=== PATIENT | male | born 1940 | race Hispanic/Latino ===

== ENCOUNTER → 2017-08-10 | Outpatient (CLI) | payer MEDICARE, OTHER ==
[~2017-08-10] MED LIST: CEPH500C2 PO; LEVO500T89 PO; OMEP20TA25 PO; SIMV5TAB6 PO
== END | disposition home or self-care (01) ==
LOC: SHCH 12:01
PROVIDERS: ATTEND Internal Medicine Cardiovascular Disease
DX: I51.7 Cardiomegaly (principal)
CPT/HCPCS: 93306

== ENCOUNTER → 2017-08-31 | Outpatient (CLI) | payer OTHER | END | disposition home or self-care (01) | LOC: OIH 13:45 | PROVIDERS: ATTEND Internal Medicine Cardiovascular Disease | DX: Z13.6 Encounter for screening for cardiovascular disorders (principal) | CPT/HCPCS: 75571 ==

== ENCOUNTER → 2017-10-12 | Outpatient (CLI) | payer MEDICARE ==
[~2017-10-12] VITALS: Ht 175.3 cm; Wt 92.5 kg
[~2017-10-12] MED LIST changes: +REGADENOSON 0.4 MG/5 ML PF SYG IVP SCH
== END | disposition home or self-care (01) ==
LOC: SHCH 07:45
PROVIDERS: ATTEND Internal Medicine Cardiovascular Disease
DX: I25.10 Atherosclerotic heart disease of native coronary artery without angina pectoris (principal); I10 Essential (primary) hypertension; E78.5 Hyperlipidemia, unspecified; K21.9 Gastro-esophageal reflux disease without esophagitis
CPT/HCPCS: 78452; 93017; 96374; A9500 ×2; J2785

== ENCOUNTER → 2024-04-16 | Outpatient (CLI) | payer OTHER ==
[~2024-04-16] MED LIST changes: +LEVO-70 PO; -LEVO500T89 PO; +OMEP20TA20 PO; -OMEP20TA25 PO; -REGADENOSON 0.4 MG/5 ML PF SYG IVP SCH; +SIMV5TAB58 PO; -SIMV5TAB6 PO
[2024-04-16 16:21] LABS: BASOPHILS # (AUTO) 0.04 K/uL (0.00-0.20); BASOPHILS % (AUTO) 0.6 % (0.0-5.0); EOSINOPHILS # (AUTO) 0.35 K/uL (0.00-0.70); HEMATOCRIT 45.7 % (42-54); IMMATURE GRANULOCYTE ABSOLUTE 0.04 K/uL (0-1); LYMPHOCYTES # (AUTO) 1.4 K/uL (1.0-4.8); LYMPHOCYTES % (AUTO) 20.7 % (21.0-51.0); MEAN CORPUSCULAR HGB CONC 32.4 g/dL (32.0-36.0); MEAN CORPUSCULAR VOLUME 95.8 fL (79-99); MONOCYTES # (AUTO) 0.8 K/uL (0.1-1.0); MONOCYTES % (AUTO) 11.2 % (3.0-13.0); NEUTROPHILS # (AUTO) 4.3 K/uL (1.8-7.7); NEUTROPHILS % (AUTO) 61.9 % (40.0-77.0); PLATELET COUNT (AUTO) 288 K/uL (130-400); RED BLOOD CELL COUNT(AUTO) 4.77 MIL/uL (4.50-6.20); RED CELL DISTRIBUTION WIDTH 13.3 % (11.0-15.5)
[2024-04-16 16:30] LABS: POTASSIUM 4.8 mmol/L (3.5-5.1)
[2024-04-16 17:03] LABS: B-TYPE NATRIURETIC PEPTIDE 25 pg/mL (0-100)
== END | disposition home or self-care (01) ==
LOC: LAB 11:37
PROVIDERS: ATTEND Internal Medicine Cardiovascular Disease
DX: I10 Essential (primary) hypertension (principal)
CPT/HCPCS: 36415; 80048; 83880; 85025

== ENCOUNTER 2024-04-29 05:47 | Inpatient (IN) | payer OTHER ==
[2024-04-25 08:36] VITALS: BP 141/80; PULSE 59; RESP 18; TEMP 97.2
[2024-04-25 08:40] LABS: BASOPHILS # (AUTO) 0.02 K/uL (0.00-0.20); BASOPHILS % (AUTO) 0.3 % (0.0-5.0); EOSINOPHILS # (AUTO) 0.23 K/uL (0.00-0.70); HEMATOCRIT 47.5 % (42-54); IMMATURE GRANULOCYTE ABSOLUTE 0.03 K/uL (0-1); LYMPHOCYTES # (AUTO) 1.3 K/uL (1.0-4.8); LYMPHOCYTES % (AUTO) 16.4 % (21.0-51.0); MEAN CORPUSCULAR HEMOGLOBIN 30.3 pg (27.0-33.0); MEAN CORPUSCULAR HGB CONC 32.6 g/dL (32.0-36.0); MONOCYTES # (AUTO) 0.8 K/uL (0.1-1.0); MONOCYTES % (AUTO) 10.1 % (3.0-13.0); NEUTROPHILS # (AUTO) 5.3 K/uL (1.8-7.7); NEUTROPHILS % (AUTO) 69.8 % (40.0-77.0); PLATELET COUNT (AUTO) 276 K/uL (130-400); RED BLOOD CELL COUNT(AUTO) 5.11 MIL/uL (4.50-6.20); RED CELL DISTRIBUTION WIDTH 13.1 % (11.0-15.5); WHITE BLOOD COUNT (AUTO) 7.6 K/uL (4.8-10.8)
[2024-04-25 08:46] LABS: ALBUMIN 3.5 g/dL (3.5-5.0); CREATININE 1.1 mg/dL (0.5-1.3); POTASSIUM 4.6 mmol/L (3.5-5.1)
[2024-04-25 08:47] LABS: INR 1.01 (0.85-1.15); PROTHROMBIN TIME 11.3 SEC (9.6-11.6)
[2024-04-25 08:48] LABS: PARTIAL THROMBOPLASTIN TIME 28.5 SEC (26.3-35.5)
[2024-04-25 09:52] LABS: APPEARANCE,URINE CLEAR (CLEAR); BILIRUBIN,URINE NEGATIVE (NEGATIVE); COLOR,URINE YELLOW (YELLOW); GLUCOSE, URINE (UA) NEGATIVE (NEGATIVE); KETONES,URINE NEGATIVE (NEGATIVE); LEUKOCYTE ESTERASE ,URINE NEGATIVE Leu/uL (NEGATIVE); NITRATE,URINE NEGATIVE (NEGATIVE); OCCULT BLOOD,URINE SMALL (NEGATIVE); PH,URINE 5.5 (5.0-8.0); PROTEIN,URINE NEGATIVE (NEGATIVE); UROBILINOGEN,URINE 0.2 mg/dL (0.2-1.0)
[2024-04-25 09:54] LABS: ADD UA MICROSCOPIC YES
[2024-04-25 10:05] LABS: BACTERIA,URINE RARE /HPF (None Seen); MUCUS,URINE RARE LPF (None Seen); SQUAMOUS EPITHELIAL CELL,UR RARE /HPF (0-2); WBC,URINE 0-1 /HPF (0-1)
[~2024-04-29] VITALS: Ht 172.7 cm; Wt 86.6 kg
[2024-04-29] VITALS (32 sets, daily range): BP systolic 109–137; BP diastolic 60–75; PULSE 60–88; RESP 12–20; TEMP 96.7–98.5; O2SAT 97
[~2024-04-29 05:47] MED LIST changes: +ATOR10TA69 PO; -CEPH500C2 PO; -LEVO-70 PO; +LOSA100T59 PO; +METO50TA18 PO; +SERT-438 PO; -SIMV5TAB58 PO; +TAMS-1 PO
[2024-04-29] MEDS: FAMOTIDINE 20MG VIAL IV ONE (06:42)
[2024-04-29] MEDS: acetaMINOPHEN 100 ML ONE (06:42)
[2024-04-29] MEDS: IpraTROPium/alBUTERol SULFATE 3 ML SOLUTION IH ONE (06:53)
[2024-04-29] MEDS ORDERED: rocuRONium bROMide 10MG/1ML 5ML VL ONE ×2 (06:57→07:59)
[2024-04-29] MEDS ORDERED: LIDOCAINE HCL-MPF 2% 10ML AMP IJ ONE (06:57)
[2024-04-29] MEDS ORDERED: proPOFol 10 MG/ML 20ML VIAL IV ONE (06:57)
[2024-04-29] MEDS ORDERED: FENTanyl CITRate PF 50 MCG/1 ML 2ML VIAL ONE (06:58)
[2024-04-29] MEDS ORDERED: ketaMINE 50MG/ML SYRINGE 50 MG/ML DISP.SYRIN ONE (06:59)
[2024-04-29] MEDS ORDERED: ROPivacaine 0.5% 5MG/ML 30ML ONE (06:59)
[2024-04-29] MEDS ORDERED: dexaMETHasone SOD PHOSPHATE 10MG/ML 1ML VIAL ONE (07:33)
[2024-04-29] MEDS ORDERED: ondanSETRON 4MG INJ ONE (07:33)
[2024-04-29] MEDS ORDERED: ePHEDrine SULFate 50 MG/ML AMPULE ONE (07:48)
[2024-04-29] MEDS: ceFAZolin SODIUM 2 GM VIAL ONE (07:55)
[2024-04-29] MEDS: LACTATED RINGERS 1000ML 1,000 ML IV ONE (08:26)
--- NOTE | 2024-04-29 08:38 | EKG ---
[facility] Test Date: 2024-04-29 Test Time: 06:33:43 Pat Name: ALTAF GARCES Department: [facility] Room: 432 Gender: M Corporate Counselor: [id number] : 1940 Requested By: ANY CHINO Order Number: [id number] Reading MD: Ant Gonzales Measurements Intervals Boomer Rate: 60 P: 69 UT: 184 QRS: -50 QRSD: 104 T: 19 QT: 408 QTc: 410 Interpretive Statements Sinus rhythm Left anterior fascicular block Compared to ECG 11/16/2015 11:18:42 Left anterior fascicular block now present Left-axis deviation no longer present Electronically Signed On 04-29-2024 21:24:10 MAORI LIAISON ADVISER by Ant Gonzales Please click the below link to view image of tracing.
[2024-04-29] MEDS ORDERED: PoTASSium chloRIDE 20MEQ/100ML 100 ML IV PRN (09:30)
[2024-04-29] MEDS ORDERED: FERROUS FUMARATE 324 MG TABLET PO PRN (09:30)
[2024-04-29] MEDS ORDERED: PoTASSium chl 10% ELIXIR 20MEQ 20 MEQ/15 ML UDCUP PO PRN (09:30)
[2024-04-29] MEDS ORDERED: ondanSETRON 4MG INJ IVP PRN (09:30)
[2024-04-29] MEDS ORDERED: CALCIUM CARB 500MG PO PRN (09:30)
[2024-04-29] MEDS ORDERED: traMADol HCL 50 MG TABLET PO PRN (09:30)
[2024-04-29] MEDS ORDERED: PoTASSium chloRIDE 20MEQ ER 20 MEQ ERTAB PO PRN (09:30)
[2024-04-29] MEDS ORDERED: GLYCOPYRROLATE 0.2 MG/ML 5 ML VIAL ONE (09:38)
[2024-04-29] MEDS ORDERED: NEOSTIGMINE METHYLSULFATE 1MG/ML IV ONE (09:39)
--- NOTE | 2024-04-29 09:39 | OP ---
Operative Note: DATE OF PROCEDURE: 04/29/24 SURGEON: BLADE FOUNTAIN MD HOME ECONOMICS EXPERT: Viktor Saavedra ANESTHESIA: General and fascia iliaca block ANESTHESIOLOGIST/FLIGHT ENGINEER PERFORMANCE QUALIFIED: Sofy Swift PREOPERATIVE DIAGNOSIS: Left hip osteoarthritis POSTOPERATIVE DIAGNOSIS: Left hip osteoarthritis PROCEDURE: Left total hip arthroplasty ESTIMATED BLOOD LOSS: 250 cc INDICATIONS: 84-year-old male with left hip osteoarthritis failing conservative management most recently with the intra-articular steroid injections. After discussion of the risks, benefits, and alternatives, the patient voluntarily agreed to undergo the aforementioned procedure. IMPLANTS: Xie and Nephew 54 mm R3 shell with 6.5 screws x2, central hole cover, and 0 degree XL PE liner, size nine standard offset anthology stem with the 36 mm +0 Oxinium head DESCRIPTION OF PROCEDURE: Patient was properly identified in the preoperative holding area. Surgical site marking was verified and surgery consent reviewed. The patient was then taken to the operating room and placed in supine position on the OR table. After induction of general anesthesia, preoperative antibiotics were given. The patient was then transitioned in the lateral decubitus position with the left side up. All bony prominences were well-padded. Left lower extremity was then prepped and draped in the usual sterile fashion. Surgical time out was done verifying correct surgery, side, site, and location to be performed. We then began the procedure by making approximately 15 cm long incision centered over the greater trochanter. Here we came sharply through skin down to the fascia. Hemostasis was then achieved using Bovie electrocautery. We then incised fascia in line with the skin incision and finger split the tensor muscle proximally. We then placed our Charnley retractor. At this point we identified the vastus ridge and began elevating the full-thickness soft tissue flap off of the vastus ridge, splitting the vastus lateralis and gluteus muscles as leticia israel. We then proceeded to externally rotate the femur while making this flap. We resected part of the anterior capsule. The femoral head and neck was then delivered into view. We then dislocated the hip and performed a femoral neck osteotomy approximately half fingerbreadth proximal to the lesser trochanter. We then placed our retractors around the superior and anterior portion of the acetabulum and began to remove the labrum circumferentially. We then began reaming the acetabulum where we reamed up to a size 53 ensuring appropriate anteversion and abduction. We then proceeded to trial with the size 54 acetabular component and this appeared to sit well. We opened our size 54 acetabular component and after irrigating out the wound malleted this into place. It appeared to have good press-fit however we elected to place 6.5 mm screws x2. We drilled and filled the screws in standard fashion in the posterior superior portion of the cup. We then placed the manhole cover on the center of the cup. The wound was thoroughly irrigated out further and we placed the acetabular liner and impacted this in place in standard fashion. We then proceeded to reposition our retractors to elevate the proximal femur out of the wound. We then used the box chisel and canal finder to began preparing the femoral side and sequentially broached up to the aforementioned size stem. Once we felt we had good fit, fill, and control of the femur with the stem in place we then used our trial head component and reduce the hip. Upon reduction, we had appropriate soft tissue tensioning, limb length and stable range of motion. We therefore dislocated the hip once more removed our trial components thoroughly irrigated the out the wound and placed our final components in standard fashion. The hip was then reduced with the final components in place. It was found to be stable through range of motion with appropriate soft tissue tensioning and appropriate limb length. At this point we placed a bump under the knee and the foot on the male with a stack of towels to allow for internal rotation. We repaired the abductors back to the greater trochanter using #5 Ethibond. We then repaired the rent in the vastus lateralis and gluteus muscles using #1 Vicryl in a running fashion. We removed our Charnley retractor and began to repair the IT band using #1 Vicryl in interrupted [id number] fashion. At this point we began to close her subcutaneous tissue using 2-0 Vicryl. Running 3-0 Monocryl in subcuticular fashion with Dermabond placed over this for the skin. Island barrier dressing was then applied. Patient was returned to supine position with abduction pillow placed, awakened from anesthesia, and taken to the recovery room in stable condition. BLADE FOUNTAIN MD Apr 29, 2024 09:39
[2024-04-29] MEDS: 0.9%NACL 1000ML 1,000 ML IV SCH (10:12)
[2024-04-29] MEDS: ketOROlac 15MG/ML VIAL (15MG/ML) IV SCH (10:13)
[2024-04-29] MEDS: 0.9%NACL 1000ML 1,000 ML IV ONE (10:27)
[2024-04-29] MEDS: ketOROlac 15MG/ML VIAL (15MG/ML) ONE (10:27)
[2024-04-29] MEDS: FENTanyl CITRate PF 50 MCG/1 ML 2ML VIAL ONE (10:28)
--- NOTE | 2024-04-29 10:52 | HMCIMG ---
HIP BILAT 2VW REASON: S/P HIP SURGERY; COMPARING RT vs LT COMPARISON: None TECHNIQUE: AP pelvis was performed as well as oblique views of each hip. FINDINGS: There is a total hip joint prosthesis in place on the left. Adjacent bone appears unremarkable. There are surgical changes in the soft tissues. Pelvis appears otherwise unremarkable. Proximal right femur appears normal. Hip joint spaces preserved. IMPRESSION: 1. Documentation of total hip joint prosthesis placement on the left without evidence of complication. 2. Otherwise unremarkable exam.
[2024-04-29] MEDS: morPHINE 4 MG SYG ONE (11:18)
[2024-04-29] MEDS: HYDROcodone/APAP 5/325 1 TAB TABLET PO PRN (13:49)
[2024-04-29] MEDS: ceFAZolin SODIUM 2 GM VIAL IVP SCH (13:49)
[2024-04-29] MEDS: CYCLOBENZAPRINE HCL 10 MG TABLET PO PRN (13:49)
[2024-04-29] MEDS: GABApentin 100 MG CAPSULE PO SCH (13:49)
--- NOTE | 2024-04-29 15:23 | HMCIMG ---
HIP UNILAT 4VW LEFT REASON: LT total hip arthroplasty COMPARISON: None TECHNIQUE: 7 surgical spot views are obtained documenting left total hip joint prosthesis. Prostate time was 0.24 minutes. Impression: 1. Documentation of left hip total joint prosthesis.
--- NOTE | 2024-04-29 16:15 | NUR ---
ORTHO COORDINATOR: PATIENT SLEEPING. LEFT UNDISTURBED. B SCD'S SLEEVES IN PLACE IN FUNCTIONING. INCENTIVE SPIROMETER ON BEDSIDE TRAY.
[2024-04-29] MEDS: ASPIRIN 325MG EC TAB PO SCH (21:26)
[2024-04-29] MEDS: tamSULOsin HCL 0.4 MG CAP.ER.24H PO SCH (21:26)
[2024-04-29] MEDS: doCUSate SODIUM 100 MG CAP PO SCH (21:26)
[2024-04-29] MEDS: SERTraline HCL 50 MG TABLET PO SCH (21:30)
[2024-04-30] VITALS (9 sets, daily range): BP systolic 105–145; BP diastolic 55–74; PULSE 67–83; RESP 17–22; TEMP 97.5–98.8; O2SAT 95–98
[2024-04-30 05:10] LABS: HEMATOCRIT 38.8 % (42-54); MEAN CORPUSCULAR HEMOGLOBIN 30.7 pg (27.0-33.0); RED BLOOD CELL COUNT(AUTO) 4.17 MIL/uL (4.50-6.20); RED CELL DISTRIBUTION WIDTH 13.1 % (11.0-15.5); WHITE BLOOD COUNT (AUTO) 11.4 K/uL (4.8-10.8)
[2024-04-30] MEDS: polyETHYLene GLYCol 3350 17 GM POWD.PACK PO SCH (07:48)
[2024-04-30] MEDS: PANTOPrazole 40 MG TAB DR PO SCH (07:48)
[2024-04-30] MEDS: metoPROLOL tartRATE 25 MG TAB PO SCH (09:21)
[2024-04-30] MEDS: LoSARTan 50 MG TABLET PO SCH (09:21)
--- NOTE | 2024-04-30 11:00 | NUR ---
ORTHO COORDINATOR: TEACHING REGARDING DVT AND PNEUMONIA PREVENTION, PAIN MANAGEMENT AND PAIN EXPECTATIONS. PATIENT UP TO CHAIR, FAMILY MEMBER AT BEDSIDE. PATIENT REPORTS PERFORMING INCENTIVE SPIROMETRY EVERY TWO HOURS, ENCOURAGED TO PERFORM DURING COMMERCIALS. SCD MACHINE AT BEDSIDE. PATIENT RETURN DEMONSTRATED PROPER FOOT FLEXION AND EXTENSION. PAIN MANAGED. ICE PACK TO L HIP. PATIENT WILL BE DISCHARGED TO REHAB. CASE MANAGEMENT ARRIVED TO ROOM. ORTHO COORDINATOR EXITED ROOM.
[2024-04-30] MEDS: ketOROlac 15MG/ML VIAL (15MG/ML) IV PRN (14:19)
--- NOTE | 2024-04-30 15:05 | NUR ---
[facility] CM MET WITH PT AND BROTHER THIS MORNING ASSESSMENT DONE. PATIENT IS INDEPENDENT PRIOR TO ADMISSION, LIVE AT HOME ALONE, BROTHER LIVES CLOSE BY. PATIENT HAS A WALKER, RAISED TOILET, NEBULIZER MACHINE, [facility]. DENIES ANY OTHER EQUIPMENT/SERVICES. FEELS SAFE TO GO BACK HOME, STILL DRIVE, BROTHER ABLE TO ASSIST WITH TRANSPORTATION AND NEEDS NECESSARY. DISCUSSED MD RECOMMENDATIONS HOME W/HH, PT PREFERRED TO GO TO SHORT TERM REHAB AT SNF HE LIVES ALONE, INFORMED PT HE DOES NOT HAVE SNF SERVICES CONNECTION, BUT CM CAN TRY IRU HE HAS REHAB COVERAGE FOR IRU, PT VERBALIZED HE ALSO HAS [facility] INSURANCE SECONDARY, WOULD LIKE TO USE IT INSTEAD. CONSENT SIGNED [facility] FOR [facility]. [facility] ONCE APPROVED. CM SENT ORDER, CLINICALS, PT, PASRR TO [facility] AND [facility] VIA SECURE EMAIL. CM SPOKE TO [facility] THIS MORNING, CAME TO EVALUATE PT, PT PENDING APPROVAL AT THIS TIME. PRIMARY NURSE SERGIO GEIGER. DR FOUNTAIN UPDATED. GWEN TO CONTINUE TO OFLLOW UP. Addendum: 04/30/24 at 1509 by DEANDRA WALTERS LVN Amended: Links added.
--- NOTE | 2024-04-30 17:14 | PN ---
POD 1 Reports pain tolerable. Walked with PT yesterday. States he is voiding on his own but not passing any gas yet. Aniya PO. Denies CP/SOB. VSS, AF A&Ox3 NAD sitting in chair at bedside LLE -dressing c/d/i -calf mild edema/soft/NT/ Negation Leayne's -intact ankle DF PT walked 60 ft this afternoon DCP is for avel A/P: 84 yo POD 1 s/p L MARGARET and asymptomatic acute blood loss anemia - cont to mobilize with PT - cont my standard discharge planning - monitor for symptoms of anemia Vitals/Labs Vital Signs Date Time Temp Pulse Resp B/P (MAP) Pulse Ox O2 Delivery O2 Flow Rate FiO2 04/30/24 16:28 98.8 67 19 145/74 97 04/30/24 08:00 Nasal Cannula* 2 28 Laboratory Tests 04/30/24 04:41 Medications Current Medications Cefazolin Sodium 2 gm STK-MED ONCE .ROUTE Last administered on 04/29/24at 07:55; Start 04/29/24 at 06:31; Stop 04/29/24 at 06:31; Status DC Lactated Ringer's 1,000 ml @ As Directed STK-MED ONCE IV Last administered on 04/29/24at 08:26; Start 04/29/24 at 06:31; Stop 04/29/24 at 06:31; Status DC Albuterol 1 UDVIAL ONCE ONCE IH Last administered on 04/29/24at 06:53; Start 04/29/24 at 06:40; Stop 04/29/24 at 06:41; Status DC Acetaminophen 100 ml @ As Directed STK-MED ONCE .ROUTE; Start 04/29/24 at 06:42; Stop 04/29/24 at 06:47; Status DC Famotidine 20 mg STK-MED ONCE IV; Start 04/29/24 at 06:42; Stop 04/29/24 at 06:47; Status DC Lidocaine HCl 1 ml STK-MED ONCE IJ; Start 04/29/24 at 06:57; Stop 04/29/24 at 06:57; Status DC Propofol 200 mg STK-MED ONCE IV; Start 04/29/24 at 06:57; Stop 04/29/24 at 06:57; Status DC Rocuronium [place] 50 mg STK-MED ONCE .ROUTE; Start 04/29/24 at 06:57; Stop 04/29/24 at 06:57; Status DC Fentanyl Citrate 100 mcg STK-MED ONCE .ROUTE; Start 04/29/24 at 06:58; Stop 04/29/24 at 06:58; Status DC Ropivacaine 150 mg STK-MED ONCE .ROUTE; Start 04/29/24 at 06:59; Stop 04/29/24 at 07:00; Status DC Ketamine HCl 50 mg STK-MED ONCE .ROUTE; Start 04/29/24 at 06:59; Stop 04/29/24 at 07:00; Status DC Ondansetron HCl 4 mg STK-MED ONCE .ROUTE; Start 04/29/24 at 07:33; Stop 04/29/24 at 07:33; Status DC Dexamethasone Sodium Phosphate 10 mg STK-MED ONCE .ROUTE; Start 04/29/24 at 07:33; Stop 04/29/24 at 07:33; Status DC Ephedrine Sulfate 50 mg STK-MED ONCE .ROUTE; Start 04/29/24 at 07:48; Stop 04/29/24 at 07:49; Status DC Rocuronium [place] 50 mg STK-MED ONCE .ROUTE; Start 04/29/24 at 07:59; Stop 04/29/24 at 08:00; Status DC Sodium Chloride 1,000 ml @ 100 mls/hr Q10H IV Last administered on 04/30/24at 05:22; Start 04/29/24 at 09:30; Stop 04/30/24 at 09:29; Status DC Polyethylene Glycol 17 gm DAILY PO Last administered on 04/30/24at 07:48; Start 04/30/24 at 09:00; Stop 05/30/24 at 08:59 Bisacodyl 10 mg DAILY PRN RC; Start 05/02/24 at 09:30; Stop 06/01/24 at 09:29 Ketorolac Tromethamine 15 mg Q6H PRN IV Last administered on 04/30/24at 14:19; Start 04/30/24 at 09:30; Stop 05/04/24 at 09:29 Ferrous Fumarate 324 mg DAILY PRN PO; Start 04/29/24 at 09:30; Stop 05/29/24 at 09:29 Calcium Carbonate 500 mg Q12H PRN PO; Start 04/29/24 at 09:30; Stop 05/29/24 at 09:29 Ondansetron HCl 4 mg Q6H PRN IVP; Start 04/29/24 at 09:30; Stop 05/29/24 at 09:29 Cefazolin Sodium 2 gm Q8H IVP Last administered on 04/29/24at 22:40; Start 04/29/24 at 14:30; Stop 04/29/24 at 22:31; Status DC Gabapentin 100 mg TID PO Last administered on 04/30/24at 14:19; Start 04/29/24 at 14:00; Stop 05/29/24 at 13:59 Cyclobenzaprine HCl 5 mg Q8H PRN PO Last administered on 04/29/24at 13:49; Start 04/29/24 at 09:30; Stop 05/29/24 at 09:29 Docusate Sodium 100 mg BID PO Last administered on 04/30/24at 07:48; Start 04/29/24 at 21:00; Stop 05/29/24 at 20:59 Ketorolac Tromethamine 15 mg Q8H IV Last administered on 04/30/24at 01:21; Start 04/29/24 at 09:30; Stop 04/30/24 at 01:31; Status DC Aspirin 325 mg BID PO Last administered on 04/30/24at 07:48; Start 04/29/24 at 21:00; Stop 05/29/24 at 20:59 Potassium Chloride 100 ml @ 100 mls/hr AD PRN IV; Start 04/29/24 at 09:30; Stop 05/29/24 at 09:29 Potassium Chloride 20 meq AD PRN PO; Start 04/29/24 at 09:30; Stop 05/29/24 at 09:29 Potassium Chloride 20 meq AD PRN PO; Start 04/29/24 at 09:30; Stop 05/29/24 at 09:29 Tramadol HCl 50 mg Q6H PRN PO; Start 04/29/24 at 09:30; Stop 05/04/24 at 09:29 Acetaminophen/ Hydrocodone Bitart Q4H PRN PO Last administered on 04/30/24at 07:48; Start 04/29/24 at 09:30; Stop 05/04/24 at 09:29 Atorvastatin Calcium 10 mg HS PO; Start 04/30/24 at 21:00; Stop 05/30/24 at 20:59 Losartan Potassium 50 mg AM PO Last administered on 04/30/24at 09:21; Start 04/30/24 at 09:00; Stop 05/30/24 at 08:59 Metoprolol Tartrate 25 mg AM PO Last administered on 04/30/24at 09:21; Start 04/30/24 at 09:00; Stop 05/30/24 at 08:59 Tamsulosin HCl 0.4 mg HS PO Last administered on 04/29/24at 21:26; Start 04/29/24 at 21:00; Stop 05/29/24 at 20:59 Pantoprazole Sodium 40 mg DAILY PO Last administered on 04/30/24at 07:48; Start 04/30/24 at 09:00; Stop 05/30/24 at 08:59 Sertraline HCl 25 mg HS PO Last administered on 04/29/24at 21:30; Start 04/29/24 at 21:00; Stop 05/29/24 at 20:59 Glycopyrrolate 1 mg STK-MED ONCE .ROUTE; Start 04/29/24 at 09:38; Stop 04/29/24 at 09:39; Status DC Neostigmine Methylsulfate 10 mg STK-MED ONCE IV; Start 04/29/24 at 09:39; Stop 04/29/24 at 09:39; Status DC Ketorolac Tromethamine 15 mg STK-MED ONCE .ROUTE; Start 04/29/24 at 10:13; Stop 04/29/24 at 10:13; Status DC Sodium Chloride 1,000 ml @ As Directed STK-MED ONCE IV; Start 04/29/24 at 10:13; Stop 04/29/24 at 10:13; Status DC Fentanyl Citrate 100 mcg STK-MED ONCE .ROUTE Last administered on 04/29/24at 10:28; Start 04/29/24 at 10:17; Stop 04/29/24 at 10:18; Status DC Morphine Sulfate 4 mg STK-MED ONCE .ROUTE Last administered on 04/29/24at 11:18; Start 04/29/24 at 11:07; Stop 04/29/24 at 11:07; Status DC BLADE FOUNTAIN MD Apr 30, 2024 17:14
[2024-04-30] MEDS: atorVAStatin 10 MG TABLET PO SCH (20:23)
[2024-05-01] VITALS (7 sets, daily range): BP systolic 97–145; BP diastolic 54–83; PULSE 44–86; RESP 16–19; TEMP 97.4–100; O2SAT 94–96
--- NOTE | 2024-05-01 12:39 | PN ---
POD 2 Reports pain tolerable but noticed worse pain overnight without applying ice packs. Reports passing very little gas. Aniya PO. Denies CP/SOB. bradycardic this morning, Tmax 100.0 A&Ox3 NAD sitting in chair at bedside LLE -dressing c/d/i -calf mild edema/soft/NT/ Negation Elayne's -intact ankle DF PT walked 60 ft yesterday DCP is for avel A/P: 84 yo POD 2 s/p L MARGARET and asymptomatic acute blood loss anemia - cont to mobilize with PT - discussed trying to get a shower this afternoon - encourage more IS use - cont my standard discharge planning - monitor for symptoms of anemia Vitals/Labs Vital Signs Date Time Temp Pulse Resp B/P (MAP) Pulse Ox O2 Delivery O2 Flow Rate FiO2 05/01/24 12:00 97.5 52 18 104/68 96 Room Air 05/01/24 08:00 2 28 Medications Current Medications Cefazolin Sodium 2 gm STK-MED ONCE .ROUTE Last administered on 04/29/24at 07:55; Start 04/29/24 at 06:31; Stop 04/29/24 at 06:31; Status DC Lactated Ringer's 1,000 ml @ As Directed STK-MED ONCE IV Last administered on 04/29/24at 08:26; Start 04/29/24 at 06:31; Stop 04/29/24 at 06:31; Status DC Albuterol 1 UDVIAL ONCE ONCE IH Last administered on 04/29/24at 06:53; Start 04/29/24 at 06:40; Stop 04/29/24 at 06:41; Status DC Acetaminophen 100 ml @ As Directed STK-MED ONCE .ROUTE; Start 04/29/24 at 06:42; Stop 04/29/24 at 06:47; Status DC Famotidine 20 mg STK-MED ONCE IV; Start 04/29/24 at 06:42; Stop 04/29/24 at 06:47; Status DC Lidocaine HCl 1 ml STK-MED ONCE IJ; Start 04/29/24 at 06:57; Stop 04/29/24 at 06:57; Status DC Propofol 200 mg STK-MED ONCE IV; Start 04/29/24 at 06:57; Stop 04/29/24 at 06:57; Status DC Rocuronium [place] 50 mg STK-MED ONCE .ROUTE; Start 04/29/24 at 06:57; Stop at 06:57; Status DC Fentanyl Citrate 100 mcg STK-MED ONCE .ROUTE; Start 04/29/24 at 06:58; Stop 04/29/24 at 06:58; Status DC Ropivacaine 150 mg STK-MED ONCE .ROUTE; Start 04/29/24 at 06:59; Stop 04/29/24 at 07:00; Status DC Ketamine HCl 50 mg STK-MED ONCE .ROUTE; Start 04/29/24 at 06:59; Stop 04/29/24 at 07:00; Status DC Ondansetron HCl 4 mg STK-MED ONCE .ROUTE; Start 04/29/24 at 07:33; Stop 04/29/24 at 07:33; Status DC Dexamethasone Sodium Phosphate 10 mg STK-MED ONCE .ROUTE; Start 04/29/24 at 07:33; Stop 04/29/24 at 07:33; Status DC Ephedrine Sulfate 50 mg STK-MED ONCE .ROUTE; Start 04/29/24 at 07:48; Stop 04/29/24 at 07:49; Status DC Rocuronium [place] 50 mg STK-MED ONCE .ROUTE; Start 04/29/24 at 07:59; Stop 04/29/24 at 08:00; Status DC Sodium Chloride 1,000 ml @ 100 mls/hr Q10H IV Last administered on 04/30/24at 05:22; Start 04/29/24 at 09:30; Stop 04/30/24 at 09:29; Status DC Polyethylene Glycol 17 gm DAILY PO Last administered on 05/01/24at 09:00; Start 04/30/24 at 09:00; Stop 05/30/24 at 08:59 Bisacodyl 10 mg DAILY PRN RC; Start 05/02/24 at 09:30; Stop 06/01/24 at 09:29 Ketorolac Tromethamine 15 mg Q6H PRN IV Last administered on 04/30/24at 14:19; Start 04/30/24 at 09:30; Stop 05/04/24 at 09:29 Ferrous Fumarate 324 mg DAILY PRN PO; Start 04/29/24 at 09:30; Stop 05/29/24 at 09:29 Calcium Carbonate 500 mg Q12H PRN PO; Start 04/29/24 at 09:30; Stop 05/29/24 at 09:29 Ondansetron HCl 4 mg Q6H PRN IVP; Start 04/29/24 at 09:30; Stop 05/29/24 at 09:29 Cefazolin Sodium 2 gm Q8H IVP Last administered on 04/29/24at 22:40; Start 04/29/24 at 14:30; Stop 04/29/24 at 22:31; Status DC Gabapentin 100 mg TID PO Last administered on 05/01/24at 09:00; Start 04/29/24 at 14:00; Stop 05/29/24 at 13:59 Cyclobenzaprine HCl 5 mg Q8H PRN PO Last administered on 04/29/24at 13:49; Start 04/29/24 at 09:30; Stop 05/29/24 at 09:29 Docusate Sodium 100 mg BID PO Last administered on 05/01/24at 09:00; Start 04/29/24 at 21:00; Stop 05/29/24 at 20:59 Ketorolac Tromethamine 15 mg Q8H IV Last administered on 04/30/24at 01:21; Start 04/29/24 at 09:30; Stop 04/30/24 at 01:31; Status DC Aspirin 325 mg BID PO Last administered on 05/01/24at 09:01; Start 04/29/24 at 21:00; Stop 05/29/24 at 20:59 Potassium Chloride 100 ml @ 100 mls/hr AD PRN IV; Start 04/29/24 at 09:30; Stop 05/29/24 at 09:29 Potassium Chloride 20 meq AD PRN PO; Start 04/29/24 at 09:30; Stop 05/29/24 at 09:29 Potassium Chloride 20 meq AD PRN PO; Start 04/29/24 at 09:30; Stop 05/29/24 at 09:29 Tramadol HCl 50 mg Q6H PRN PO; Start 04/29/24 at 09:30; Stop 05/04/24 at 09:29 Acetaminophen/ Hydrocodone Bitart Q4H PRN PO Last administered on 05/01/24at 09:00; Start 04/29/24 at 09:30; Stop 05/04/24 at 09:29 Atorvastatin Calcium 10 mg HS PO Last administered on 04/30/24at 20:23; Start 04/30/24 at 21:00; Stop 05/30/24 at 20:59 Losartan Potassium 50 mg AM PO Last administered on 04/30/24at 09:21; Start 04/30/24 at 09:00; Stop 05/30/24 at 08:59 Metoprolol Tartrate 25 mg AM PO Last administered on 04/30/24at 09:21; Start 04/30/24 at 09:00; Stop 05/30/24 at 08:59 Tamsulosin HCl 0.4 mg HS PO Last administered on 04/30/24at 20:23; Start 04/29/24 at 21:00; Stop 05/29/24 at 20:59 Pantoprazole Sodium 40 mg DAILY PO Last administered on 05/01/24at 09:00; Start 04/30/24 at 09:00; Stop 05/30/24 at 08:59 Sertraline HCl 25 mg HS PO Last administered on 04/30/24at 20:24; Start 04/29/24 at 21:00; Stop 05/29/24 at 20:59 Glycopyrrolate 1 mg STK-MED ONCE .ROUTE; Start 04/29/24 at 09:38; Stop 04/29/24 at 09:39; Status DC Neostigmine Methylsulfate 10 mg STK-MED ONCE IV; Start 04/29/24 at 09:39; Stop 04/29/24 at 09:39; Status DC Ketorolac Tromethamine 15 mg STK-MED ONCE .ROUTE; Start 04/29/24 at 10:13; Stop 04/29/24 at 10:13; Status DC Sodium Chloride 1,000 ml @ As Directed STK-MED ONCE IV; Start 04/29/24 at 10:13; Stop 04/29/24 at 10:13; Status DC Fentanyl Citrate 100 mcg STK-MED ONCE .ROUTE Last administered on 04/29/24at 10:28; Start 04/29/24 at 10:17; Stop 04/29/24 at 10:18; Status DC Morphine Sulfate 4 mg STK-MED ONCE .ROUTE Last administered on 04/29/24at 11:18; Start 04/29/24 at 11:07; Stop 04/29/24 at 11:07; Status DC BLADE FOUNTAIN MD May 01, 2024 12:39
--- NOTE | 2024-05-01 15:47 | NUR ---
cm note call made to Leslie with [facility] and states pt is still pending approval.
[2024-05-02] VITALS (7 sets, daily range): BP systolic 88–125; BP diastolic 53–75; PULSE 77–87; RESP 16–19; TEMP 79–99.3; O2SAT 94
[2024-05-02] MEDS: LACTULOSE 20 GM/30 ML UDCUP PO ONE (08:55)
[2024-05-02] MEDS ORDERED: BisaCODYL 10 MG SUPP.RECT RC PRN (09:30)
--- NOTE | 2024-05-02 12:15 | NUR ---
ORTHO COORDINATOR: REINFORCED TEACHING. PATIENT IN [place], FAMILY AT BEDSIDE. PATIENT REPORTS BECOMING DIZZY WHEN TRANSFERRING FROM CHAIR TO BED. HYPOTENSIVE. ENCOURAGED PATIENT TO UTILIZE INCENTIVE SPIROMETER EVERY HOUR, 10 BREATHS PER HOUR. PATIENT VERBALIZED UNDERSTANDING.
--- NOTE | 2024-05-02 12:34 | NUR ---
DC PLAN UPDATES SENT TO REP PENDING INSURANCE AUTH. Addendum: 05/02/24 at 1235 by MIGUEL ANGEL ANDINO RN CM Amended: Links added.
--- NOTE | 2024-05-02 16:18 | NUR ---
DC PLAN Not approved yet. Delay caused because he has no services connection could [place] use [place] benefits. Then he changed insurance as of today. [employer] working with patient and family to get new insurance cards and to submit to new insurance. Addendum: 05/03/24 at 0754 by MIGUEL ANGEL ANDINO RN CM Amended: Links added.
[2024-05-03] VITALS: BP 122/63; PULSE 80; RESP 19; TEMP 98
[2024-05-03 08:00] VITALS: BP 113/68; PULSE 58; RESP 16; TEMP 98.3; O2SAT 97
--- NOTE | 2024-05-03 08:34 | PN ---
POD Reports pain tolerable. Able to shower yesterday. Reports passing more gas after lactulose. Aniya PO. Denies CP/SOB. hypotension problems yesterday A&Ox3 NAD sitting in chair at bedside LLE -calf mild edema/soft/NT/ Negation Elayne's -intact ankle DF PT walked 65 ft yesterday DCP is for avel pending insurance A/P: 84 yo POD 4 s/p L MARGARET and asymptomatic acute blood loss anemia - cont to mobilize with PT - stopped gabapentin d/t hypotension - encourage more IS use - ok to discharge once insurance auth Vitals/Labs Vital Signs Date Time Temp Pulse Resp B/P (MAP) Pulse Ox O2 Delivery O2 Flow Rate FiO2 05/03/24 00:00 98.1 80 19 122/63 95 Room Air 05/02/24 20:00 0 21 Medications Current Medications Cefazolin Sodium 2 gm STK-MED ONCE .ROUTE Last administered on 04/29/24at 07:55; Start 04/29/24 at 06:31; Stop 04/29/24 at 06:31; Status DC Lactated Ringer's 1,000 ml @ As Directed STK-MED ONCE IV Last administered on 04/29/24at 08:26; Start 04/29/24 at 06:31; Stop 04/29/24 at 06:31; Status DC Albuterol 1 UDVIAL ONCE ONCE IH Last administered on 04/29/24at 06:53; Start 04/29/24 at 06:40; Stop 04/29/24 at 06:41; Status DC Acetaminophen 100 ml @ As Directed STK-MED ONCE .ROUTE; Start 04/29/24 at 06:42; Stop 04/29/24 at 06:47; Status DC Famotidine 20 mg STK-MED ONCE IV; Start 04/29/24 at 06:42; Stop 04/29/24 at 06:47; Status DC Lidocaine HCl 1 ml STK-MED ONCE IJ; Start 04/29/24 at 06:57; Stop 04/29/24 at 06:57; Status DC Propofol 200 mg STK-MED ONCE IV; Start 04/29/24 at 06:57; Stop 04/29/24 at 06:57; Status DC Rocuronium [place] 50 mg STK-MED ONCE .ROUTE; Start 04/29/24 at 06:57; Stop 04/29/24 at 06:57; Status DC Fentanyl Citrate 100 mcg STK-MED ONCE .ROUTE; Start 04/29/24 at 06:58; Stop 04/29/24 at 06:58; Status DC Ropivacaine 150 mg STK-MED ONCE .ROUTE; Start 04/29/24 at 06:59; Stop 04/29/24 at 07:00; Status DC Ketamine HCl 50 mg STK-MED ONCE .ROUTE; Start 04/29/24 at 06:59; Stop 04/29/24 at 07:00; Status DC Ondansetron HCl 4 mg STK-MED ONCE .ROUTE; Start 04/29/24 at 07:33; Stop 04/29/24 at 07:33; Status DC Dexamethasone Sodium Phosphate 10 mg STK-MED ONCE .ROUTE; Start 04/29/24 at 07:33; Stop 04/29/24 at 07:33; Status DC Ephedrine Sulfate 50 mg STK-MED ONCE .ROUTE; Start 04/29/24 at 07:48; Stop 04/29/24 at 07:49; Status DC Rocuronium [place] 50 mg STK-MED ONCE .ROUTE; Start 04/29/24 at 07:59; Stop 04/29/24 at 08:00; Status DC Sodium Chloride 1,000 ml @ 100 mls/hr Q10H IV Last administered on 04/30/24at 05:22; Start 04/29/24 at 09:30; Stop 04/30/24 at 09:29; Status DC Polyethylene Glycol 17 gm DAILY PO Last administered on 05/02/24at 08:55; Start 04/30/24 at 09:00; Stop 05/30/24 at 08:59 Bisacodyl 10 mg DAILY PRN RC; Start 05/02/24 at 09:30; Stop 06/01/24 at 09:29 Ketorolac Tromethamine 15 mg Q6H PRN IV Last administered on 04/30/24at 14:19; Start 04/30/24 at 09:30; Stop 05/04/24 at 09:29 Ferrous Fumarate 324 mg DAILY PRN PO; Start 04/29/24 at 09:30; Stop 05/29/24 at 09:29 Calcium Carbonate 500 mg Q12H PRN PO; Start 04/29/24 at 09:30; Stop 05/29/24 at 09:29 Ondansetron HCl 4 mg Q6H PRN IVP; Start 04/29/24 at 09:30; Stop 05/29/24 at 09:29 Cefazolin Sodium 2 gm Q8H IVP Last administered on 04/29/24at 22:40; Start 04/29/24 at 14:30; Stop 04/29/24 at 22:31; Status DC Gabapentin 100 mg TID PO Last administered on 05/02/24at 19:51; Start 04/29/24 at 14:00; Stop 05/03/24 at 07:06; Status DC Cyclobenzaprine HCl 5 mg Q8H PRN PO Last administered on 04/29/24at 13:49; Start 04/29/24 at 09:30; Stop 05/29/24 at 09:29 Docusate Sodium 100 mg BID PO Last administered on 05/02/24at 19:50; Start 04/29/24 at 21:00; Stop 05/29/24 at 20:59 Ketorolac Tromethamine 15 mg Q8H IV Last administered on 04/30/24at 01:21; Start 04/29/24 at 09:30; Stop 04/30/24 at 01:31; Status DC Aspirin 325 mg BID PO Last administered on 05/02/24at 19:49; Start 04/29/24 at 21:00; Stop 05/29/24 at 20:59 Potassium Chloride 100 ml @ 100 mls/hr AD PRN IV; Start 04/29/24 at 09:30; Stop 05/29/24 at 09:29 Potassium Chloride 20 meq AD PRN PO; Start 04/29/24 at 09:30; Stop 05/29/24 at 09:29 Potassium Chloride 20 meq AD PRN PO; Start 04/29/24 at 09:30; Stop 05/29/24 at 09:29 Tramadol HCl 50 mg Q6H PRN PO; Start 04/29/24 at 09:30; Stop 05/04/24 at 09:29 Acetaminophen/ Hydrocodone Bitart Q4H PRN PO Last administered on 05/03/24at 04:57; Start 04/29/24 at 09:30; Stop 05/04/24 at 09:29 Atorvastatin Calcium 10 mg HS PO Last administered on 05/02/24 19:50; Start 04/30/24 at 21:00; Stop 05/30/24 at 20:59 Losartan Potassium 50 mg AM PO Last administered on 05/02/24 08:55; Start 04/30/24 at 09:00; Stop 05/30/24 at 08:59 Metoprolol Tartrate 25 mg AM PO Last administered on 05/02/24 08:55; Start 04/30/24 at 09:00; Stop 05/30/24 at 08:59 Tamsulosin HCl 0.4 mg HS PO Last administered on 05/02/24 19:49; Start 04/29/24 at 21:00; Stop 05/29/24 at 20:59 Pantoprazole Sodium 40 mg DAILY PO Last administered on 05/02/24 08:55; Start 04/30/24 at 09:00; Stop 05/30/24 at 08:59 Sertraline HCl 25 mg HS PO Last administered on 05/02/24 19:50; Start 04/29/24 at 21:00; Stop 05/29/24 at 20:59 Glycopyrrolate 1 mg STK-MED ONCE .ROUTE; Start 04/29/24 at 09:38; Stop 04/29/24 at 09:39; Status DC Neostigmine Methylsulfate 10 mg STK-MED ONCE IV; Start 04/29/24 at 09:39; Stop 04/29/24 at 09:39; Status DC Ketorolac Tromethamine 15 mg STK-MED ONCE .ROUTE; Start 04/29/24 at 10:13; Stop 04/29/24 at 10:13; Status DC Sodium Chloride 1,000 ml @ As Directed STK-MED ONCE IV; Start 04/29/24 at 10:13; Stop 04/29/24 at 10:13; Status DC Fentanyl Citrate 100 mcg STK-MED ONCE .ROUTE Last administered on 04/29/24at 10:28; Start 04/29/24 at 10:17; Stop 04/29/24 at 10:18; Status DC Morphine Sulfate 4 mg STK-MED ONCE .ROUTE Last administered on 04/29/24at 11:18; Start 04/29/24 at 11:07; Stop 04/29/24 at 11:07; Status DC Lactulose 20 gm ONCE ONCE PO Last administered on 05/02/24at 08:55; Start 05/02/24 at 08:30; Stop 05/02/24 at 08:31; Status DC BLADE FOUNTAIN MD May 03, 2024 08:34
--- NOTE | 2024-05-03 11:00 | NUR ---
ORTHO COORDINATOR: REINFORCED TEACHING. PATIENT UP TO CHAIR IN STREET [employer]. REPORTS SHOWERING LAST NIGHT. PATIENT PAIN 10/08. STATES WAS GIVEN PAIN MEDS A LITTLE WHILE AGO. ENCOURAGED PATIENT TO CONTINUE INCENTIVE SPIROMETRY, FOOT FLEXION AND EXTENSION EXERCISES AND PAIN MANAGEMENT PRIOR TO PHYSICAL ACTIVITY AND PERIODS OF HIGH ACTIVITY WHILE IN REHAB. PATIENT VERBALIZED UNDERSTANDING TO ALL INSTRUCTIONS. NOT ADDITIONAL QUESTIONS/CONCERNS AT THIS TIME.
--- NOTE | 2024-05-03 11:06 | DS ---
Discharge Summary Assessment/Plan: ASSESSMENT: POD 4 s/p L MARGARET PLAN: see discharge instruvtions Discharge Instructions: Begin working with Physical therapy at the facility. Weightbearing as tolerated. Remembered do not flex the hip more than 90 and do not cross midline at the knees or ankles for the 1st six weeks. If you are side sleeper place a pillow between the knees and ankles to prevent the legs from crossing. Dressing may be removed today and left open to air. Showers ok allowing soap and water to run over the wound. Pat dry. Do not submerge wound in tub/pool. Do not apply ointments. Do not apply Betadine. Do not apply peroxide. Ice packs to decrease pain/swelling. Prescriptions have been sent to the pharmacy: *[place] 5/325mg 1-2 tab every 6 hours as needed for severe pain. (please call for refills) Cyclobenzaprine 5mg 1 tab every 8 hours as needed for muscle spasm pain. Colace 100mg 1 tab orally twice a day as needed for constipation. Aspirin 325mg for 30 days to prevent blood clots. Call for a follow-up appointment in 2-3 weeks at [facility]. Home Medications: Reported Medications Tamsulosin HCl (Flomax) 0.4 Mg Cap.er.24h, 1 CAP PO HS for 30 Days, #30 CAP 0 Refills 04/25/24 Losartan Potassium (Losartan Potassium) 100 Mg Tablet, 50 MG PO AM, TAB 04/25/24 Atorvastatin Calcium (Atorvastatin Calcium) 10 Mg Tablet, 1 TAB PO DAILY for 30 Days, #30 TAB 0 Refills 04/25/24 Metoprolol Tartrate (Metoprolol Tartrate) 50 Mg Tablet, 25 MG PO AM, TAB 04/25/24 Sertraline HCl (Sertraline HCl) 25 Mg Tablet, 25 MG PO HS, TAB 04/25/24 Omeprazole (Omeprazole) 20 Mg Tablet., 20 MG PO DAILY, TAB 11/16/15 BLADE FOUNTAIN MD May 03, 2024 11:06
[2024-05-03] MEDS ORDERED: DOCU-116 PO (11:09)
[2024-05-03] MEDS ORDERED: HYDR-4060 PO (11:09)
[2024-05-03] MEDS ORDERED: CYCL-309 PO (11:09)
[2024-05-03] MEDS ORDERED: ASPI-891 PO (11:09)
--- NOTE | 2024-05-03 11:23 | NUR ---
INNA PLAN PATIENT ACCEPTED TO [facility] . LET NURSE AND KNOW. WILL GO [facility]IA [facility]. Addendum: 05/03/24 at 1124 by MIGUEL ANGEL ANDINO RN CM Amended: Links added.
[2024-05-03 11:54] VITALS: BP 102/62; PULSE 76; RESP 18; TEMP 98.7
--- NOTE | 2024-05-03 13:25 | NUR ---
REPORT REPORT CALLED TO [facility], SPOKE TO GERI LAZARO. ALL QUESTIONS ANSWERED. PENDING FACILITY VAN PICKUP.
--- NOTE | 2024-05-03 15:38 | NUR ---
DISCHARGE PT DISCHARGED. IV REMOVED. PT IN NO APPARENT DISTRESS. FRIEND AT BEDSIDE.
== END 2024-05-03 15:30 | DRG 470 ==
LOC: DAH 05:47 → OBSVTOIN 05:48 → DAHIP 05:48 → 4AH 13:25
PROVIDERS: ADMIT Student in an Organized Health Care Education/Training Program; ATTEND Student in an Organized Health Care Education/Training Program
PROC: 3E0T3BZ Introduction of Anesthetic Agent into Peripheral Nerves and Plexi, Percutaneous Approach (ICD-10-PCS; 2024-04-29)
PROC: 0SRB06Z Replacement of Left Hip Joint with Oxidized Zirconium on Polyethylene Synthetic Substitute, Open Approach (ICD-10-PCS; principal; 2024-04-29 07:12)
DX: M16.12 Unilateral primary osteoarthritis, left hip (principal); D62 Acute posthemorrhagic anemia; Z79.899 Other long term (current) drug therapy
CPT/HCPCS: 36415; 73503; 73521; 80048; 81001; 82040; 84134; 85025; 85027; 85610; 85730; 86140; 86850; 86900; 86901; 86923; 87086; 87641; 93005; 94640; C1776; G0378; J1100; J1885; J2270; J2405; J2704; J2710; J2795; J3010; J3490; J7030; J7120; A4215; A4216; A4221; A4222; A4223; A4649; A4663; A4930; A5120; A6255; J0690